=== PATIENT | male | born 1980 | race Caucasian/White ===

== ENCOUNTER 2017-12-24 19:02 | Inpatient (IN) | payer OTHER ==
--- NOTE | 2017-12-24 19:57 | EDPHY ---
H & P Stated Complaint: GROIN PAIN, SWOLLEN LYMPH NODE LEFT GROIN, TO ADMIT Time Seen by Provider: 12/24/17 19:46 HPI/ROS: CHIEF COMPLAINT: Scrotal cellulitis HISTORY OF PRESENT ILLNESS: The patient presents to the ED from a freestanding emergency department for scrotal cellulitis. He has a 37-year-old gentleman who several days ago developed a infected follicle on his left scrotum. This progressed and eventually led him to urgent care on Saturday. He was turned on Keflex at that point time. Patient reportedly developed ongoing fevers and developed inguinal adenopathy prompting a repeat visit to the freestanding emergency department today. The patient reportedly has had a fever size 103 degrees. The patient denies any vomiting, significant abdominal pain or respiratory symptoms. The patient has no prior history of genitourinary pathology or abdominal surgery. REVIEW OF SYSTEMS: A comprehensive 10 point review of systems is otherwise negative aside from elements mentioned in the history of present illness. Source: Patient Exam Limitations: No limitations - Personal History Current Tetanus/Diphtheria Vaccine: Yes - Medical/Surgical History Hx Asthma: No Hx Chronic Respiratory Disease: No Hx Diabetes: No Hx Cardiac Disease: No Hx Renal Disease: No Hx Cirrhosis: No Hx Alcoholism: No Hx HIV/AIDS: No Hx Splenectomy or Spleen Trauma: No Other PMH: GERD - Social History Smoking Status: Heavy smoker - Physical Exam Exam: General Appearance: Alert, no distress Eyes: Pupils equal and round no pallor or injection ENT, Mouth: Mucous membranes moist Respiratory: There are no retractions, lungs are clear to auscultation Cardiovascular: Regular rate and rhythm Gastrointestinal: Tenderness to palpation in the left inguinal area with a inguinal adenopathy present Genitourinary: Scrotal erythema noted with mild soft tissue swelling Neurological: 5/5 strength all 4 extremities Skin: Warm and dry, no rashes Musculoskeletal: Neck is supple nontender Extremities: symmetrical, full range of motion Constitutional: Initial Vital Signs Temperature (C) 37.1 C 12/24/17 19:36 Heart Rate 94 12/24/17 19:36 Respiratory Rate 20 12/24/17 19:36 Blood Pressure 147/111 H 12/24/17 19:36 O2 Sat (%) 96 12/24/17 19:36 O2 Delivery Mode Room Air Allergies/Adverse Reactions: No Known Allergies Allergy (Unverified 12/24/17 19:34) Home Medications: Medication Instructions Recorded Iv Abx 12/24/17 Medical Decision Making ED Course/Re-evaluation: I reviewed the patient's workup at the prior freestanding ED. [place] [address] with a slight left shift. His venous lactate was normal. Blood cultures x2 were obtained. The patient's metabolic panel demonstrated no evidence of renal failure or hyperglycemia. He was noted to have normal liver function test. The patient did have a CT scan abdomen pelvis which demonstrated pelvic lymphadenopathy and a scrotal cellulitis. There is no evidence of a drainable fluid collection. The patient has stable vital signs here in the emergency department and has no evidence of septic physiology. The patient has already been given a dose of vancomycin. I do feel the patient should be admitted to the hospital for further evaluation and management of his scrotal cellulitis. Consultation is made with Dr. Jose Leal from the hospitalist service who will admit the patient. Differential Diagnosis: Differential diagnosis considered includes scrotal cellulitis, abscess, Job 's gangrene Departure - Departure Disposition: [facility] Inpatient Acute Clinical Impression: Cellulitis of scrotum, Inguinal lymphadenopathy Condition: Good Referrals: NONE *PRIMARY CARE P,. [Primary Care Provider] - As per Instructions
[2017-12-24] MEDS ORDERED: OXYCODONE/APAP 5/325 TAB ONE (20:08)
[2017-12-24] MEDS ORDERED: OXYCODONE/APAP 5/325 TAB PO ONE (20:10)
[2017-12-24] MEDS ORDERED: ACETAMINOPHEN 325 MG TAB PO PRN (22:14)
[2017-12-24] MEDS ORDERED: ONDANSETRON DISINTEGRATING 4 MG TAB PO PRN (22:14)
[2017-12-24] MEDS ORDERED: ONDANSETRON 4 MG/2 ML VIAL IVP PRN (22:14)
[2017-12-24] MEDS: FAMOTIDINE 20 MG TAB PO SCH (22:42)
[2017-12-24] MEDS: NICOTINE 21 MG/24 HR PATCH TD SCH (22:42)
--- NOTE | 2017-12-24 22:53 | GHP ---
[f rep st] HISTORY AND PHYSICAL DATE OF ADMISSION: 12/24/2017 CHIEF COMPLAINT: Cellulitis. HISTORY OF PRESENT ILLNESS: 37-year-old male without any medical problems presents with cellulitis. He initially was seen at a free standing emergency department 3 days ago. He apparently had a pimpl e on his scrotum which he had popped. He then noticed some pain in his left groin area which he init ially thought was a hernia. He then proceeded to notice some redness on his scrotum. He presented t o the freestanding emergency department than and was prescribed Keflex. Two days later, he re-presen james there with fevers to 103, worsening pain, worsening redness. At that point, he was given vancomy myles there and transferred to our emergency department here for admission to the hospital. He tells rian epstein that the pain seems like it is worse since this morning. PAST MEDICAL/SURGICAL HISTORY: None. MEDICATIONS: None. ALLERGIES: Azithromycin. SOCIAL HISTORY: He is accompanied by his . He drinks alcohol on weekends. He smokes. 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 FAMILY HISTORY: Son is also allergic to azithromycin. REVIEW OF SYSTEMS: A 10-point review of systems is conducted and is negative except per HPI. PHYSICAL EXAM: VITAL SIGNS: Blood pressure 155/104, heart rate 87, respiration rate 18, saturating 93% on room air. Temperature is 37.1. GENERAL: The patient is a pleasant man who is resting comfor tably in no acute distress. HEENT: Normocephalic, atraumatic. CARDIOVASCULAR: Regular rate and rh ythm. There are no murmurs, rubs, or gallops. PULMONARY: Lungs clear to auscultation bilaterally. ABDOMEN: Soft, nontender, nondistended. SKIN: No rash. : Some prominent left inguinal lymphad enopathy. He has area of induration in the left scrotum. There is mild erythema surrounding the lef t scrotum. He is not really tender to palpation except for over the inguinal region. I do not appre ciate any fluctuance. Testicles bilaterally are not tender to palpation. NEUROLOGIC: Alert and namrata ented x3. He is moving all extremities. PSYCHIATRIC: Normal mood and affect. LABORATORY: Studies reviewed from earlier today at outside emergency department. These are notable for a normal comprehensive metabolic panel, white count of 9.8, platelets of 180, hemoglobin of 16.6, lactate was 0.7. He had blood cultures sent. DATA: 1. I discussed this with Dr. Aguilera in the emergency department. We will admit to med/surg. 2. Reviewed report of a CT scan which was done at outside ED. This showed thickening of the skin of the left hemiscrotum with associated stranding of the left inguinal fat and left inguinal and pelvic lymphadenopathy with likely scrotal cellulitis. IMPRESSION AND PLAN: 1. Scrotal cellulitis with lymphadenopathy: I do not appreciate on exam or on imaging any discernib le abscess or other drainable fluid collection. I have a low suspicion for Job's gangrene at th is point. I think it is reasonable to treat with antibiotics and monitor closely. He will receive v ancomycin here today. If there is any worsening of his condition, would involve Urology. I will carolyne ce an Infectious Disease consult as well. I have also sent GC and chlamydia probe from his urine. 2. Hypertension: This has apparently been a problem on previous visits to urgent care. I think it is reasonable to monitor now. It is not at a dangerous level. /[id number]/MODL
[2017-12-24] MEDS: VANCOMYCIN 1.5 GM in NS 250 ML IV SCH (23:54)
[2017-12-24] MEDS: OXYCODONE/APAP 5/325 TAB PO PRN (23:55)
[2017-12-25] MEDS: OXYCODONE/APAP 5/325 TAB PO PRN ×3 (06:06→16:50)
[2017-12-25 06:26] LABS: PLATELET COUNT 166 10^3/uL (150-400)
[2017-12-25] MEDS: FAMOTIDINE 20 MG TAB PO SCH ×2 (07:49→22:41)
[2017-12-25] MEDS: NICOTINE 21 MG/24 HR PATCH TD SCH (07:49)
--- NOTE | 2017-12-25 09:09 | GCON ---
[f rep st] CONSULTATION INFECTIOUS DISEASE CONSULTATION DATE OF CONSULTATION: 12/25/2017 PROVIDER REQUESTING CONSULTATION: Jose Leal. REASON FOR CONSULTATION: Left inguinal and scrotal cellulitis. HISTORY OF PRESENT ILLNESS: This is a 37-year-old male with a past medical history of gastroesophageal reflux disease, whose problems date back to December 21, when he developed a left inguinal pain. He subsequently was seen in the emergency room on the following day, 12/22, and a pimple was found in his groin and associated left scrotal cellulitis was diagnosed and patient was prescribed Keflex. The patient does admit to manipulating pimple. Patient started on Keflex, but despite this, he had increasing pain and swelling in the scrotal area and described inguinal lymphadenopathy. He also had a fever 3 times. He subsequently presented back to an urgent care 12/24, and was diagnosed with worsening scrotal cellulitis. Blood cultures were obtained. Labs were obtained including imaging, a CT scan, which showed thickening of the left hemiscrotum associated with left inguinal fat stranding and left inguinal pelvic lymphadenopathy. The patient was transferred to [facility] for admission. Initial white count was slightly elevated at 9.9. Patient reports inguinal lymphadenopathy, swelling, and pain about 50% better, but his left hemiscrotum swelling and pain is stable today. Patient received IV vancomycin. PAST MEDICAL HISTORY: Gastroesophageal reflux disease, and pneumonia in 2014. He has had no hospitalizations and no surgeries. ALLERGIES: Azithromycin, which causes severe nausea and vomiting. SOCIAL HISTORY: Patient smokes tobacco. Drinks alcohol on the weekends. Last travel was summer to [place]. Is , has 3 children. Works as an excavator. FAMILY HISTORY: Reviewed and noncontributory. REVIEW OF SYSTEMS: A complete 10-point review of systems was performed and is negative except as mentioned in the HPI. Patient has not seen a dentist or a primary care physician in many years. PHYSICAL EXAM: VITAL SIGNS: Blood pressure 154/100, pulse 82, respiratory rate 12, sat 93% on room air, temperature 37.1, which is also his T-max. GENERAL: This is an obese young male lying in bed in no acute distress. HEENT : Fair dentition, moist mucous membranes. No oral ulcerations or exudate. NECK: Supple. No lymphadenopathy. CARDIOVASCULAR: Regular rate. No murmurs. CHEST: Patient had bibasilar crackles that cleared with coughing. No wheezes. ABDOMEN: Obese, soft, nontender. Bowel sounds are present. : Patient had circumcised phallus with bilateral distended testicles with induration and mild johnathan erythema of the left hemiscrotum, which was firm to palpation, but no fluctuance. He also had some shotty inguinal lymphadenopathy. Erythema was not streaking up into his inguinal region nor his thigh. EXTREMITIES: Exam showed no lower extremity edema. He had multiple tattoos and piercings. LABORATORY: Initial white count 9.8, today 8.8; hematocrit 44; platelets of 166 , 66% neutrophils, 24% lymphocytes. Creatinine 0.8. Blood cultures were obtained at an outside hospital on 12/24. We will try to obtain update in the records. Syphilis was also sent at outside facility and gonorrhea and chlamydia are pending here. ASSESSMENT AND PLAN: This is a 37-year-old male with minimal past medical history, who developed left inguinal and scrotal pain and subsequently fever and found to have left inguinal cellulitis with radiographic imaging of associated reactive lymphadenopathy. With likely precipitant of a pimple, certainly top of the list is Staph aureus, and with concern for MRSA due to lack of response to Keflex. Therefore, antibiotic selection with vancomycin is a reasonable choice. Patient does have some clinical improvement. Would monitor 1 more night with planned discharge in the a.m. with discharge on an agent with MRSA activity such as doxycycline or Bactrim. We will have to take note of patient's underlying GI issues as both of these agents have significant GI side effects. Thank you for this consultation. We will reassess patient in the a.m. tomorrow. All questions were answered. Greater than 50 minutes spent on this patients care, greater than 50% of time spent counseling, educating, and coordinating care regarding the above mentioned plan. /[id number]/MODL MTDD
[2017-12-25] MEDS: VANCOMYCIN 1.5 GM in NS 250 ML IV SCH ×2 (11:45→22:58)
--- NOTE | 2017-12-25 11:52 | HOSPPROG ---
Hospitalist Progress Note Assessment/Plan: Patient is a 37-year-old male without any significant past medical history. He had a pimple on his scrotum area when she opened up. He started up some redness. He then went back to the ER was prescribed Keflex. 2 days later he had fevers of 103. Today is my 1st encounter with the patient. Chart reviewed. *left inguinal and scrotal pain w fever/left inguinal cellulitis -vanco -reviewed his care with Dr. Hamilton. If improved will discharge him either on Bactrim or doxycycline * morbid obesity with a BMI of 31 point 5 * hypertension -will discuss with patient treatment options * nicotine dependence * plan. Continue IV antibiotics tonight. Hopefully with improved he can be discharged tomorrow Subjective: Ran is feeling better overall. Objective: Vital Signs Temp Pulse Resp BP Pulse Ox 36.5 C 84 14 148/103 H 93 12/25/17 11:25 12/25/17 11:25 12/25/17 11:25 12/25/17 11:25 12/25/17 11:25 Laboratory Results 12/25/17 06:01 12/25/17 06:01 12/24/17 12/25/17 12/26/17 05:59 05:59 05:59 Intake Total 675 Balance 675 - Physical Exam Constitutional: no apparent distress, not in pain, obese Eyes: PERRL Ears, Nose, Mouth, Throat: hearing normal Cardiovascular: regular rate and rhythym Respiratory: no respiratory distress Gastrointestinal: normoactive bowel sounds Skin: warm, other (Left inguinal lymphadenopathy with some erythema around the left scrotum area) Musculoskeletal: full muscle strength Neurologic: AAOx3 Psychiatric: interacting appropriately ICD10 Worksheet Patient Problems: Problems Problem Status Onset Cellulitis of scrotum Acute Inguinal lymphadenopathy Acute
--- NOTE | 2017-12-25 16:27 | ASMTCMCOM ---
CM Note CM Note Notes: Pt here with scrotal cellulitis, on vancomycin. Will likely transition to po abx at dc. No needs identified, anticipate will dc home w/support of when medically stable. CM available for any changes. DC Plan: Independent Date Signed: 12/25/2017 04:27 PM Electronically Signed By:Desiree Newsome RN
[2017-12-25 19:05] LABS: HIV TYPE 1 AND 2 NEGATIVE (NEGATIVE)
[2017-12-26] MEDS: OXYCODONE/APAP 5/325 TAB PO PRN ×5 (02:31→22:36)
[2017-12-26] MEDS: FAMOTIDINE 20 MG TAB PO SCH ×2 (07:10→21:18)
[2017-12-26] MEDS: NICOTINE 21 MG/24 HR PATCH TD SCH (07:11)
--- NOTE | 2017-12-26 08:30 | PCMIDPN ---
Assessment/Plan: # L scrotal cellulitis and reactive inguinal LAD, very little improvement and now seems more fluctuant. Associated with 'pimple' therefore SA high on the list --Obtain US and possible aspiration. If abscess evolving may need urology consult --continue IV vancomycin, check tough today --concern for SA and lack of response to Keflex, therefore coverage w Vancomycin IV meds Vancomycin 1.5 gm IV q12h #1 Micro HIV negative blood cx at OSH: awaiting results Gonorrhea neg chlamydia pending Subjective: patient report L scrotum still fairly painful, particularly w standing A little itching w infusion of IV vancomycin, no diarrhea Objective: Vital Signs Temp Pulse Resp BP Pulse Ox 36.9 C 100 18 164/106 H 92 12/26/17 07:46 12/26/17 07:46 12/26/17 07:46 12/26/17 08:12 12/26/17 07:46 Laboratory Results 12/25/17 06:01 12/25/17 06:01 12/25/17 12/26/17 12/27/17 05:59 05:59 05:59 Intake Total 675 1350 Balance 675 1350 - Physical Exam General Appearance: alert, no apparent distress Respiratory: No accessory muscle use Male Genitalia: erythema (L scrotum, very little improvement, now feels more fluctuant - egg sized area of erythema, enduration and possible fluctuance L scrotum), inguinal tenderness (L) Skin: other (multiple tattos), No rash Neuro/Psych: alert, normal mood/affect, oriented x 3 - Time Spent With Patient Time Spent with Patient: greater than 25 minutes (care coordinated w Candace Valdez NP) Time Spent with Patient: Greater than 25 minutes spent on this patients care, greater than 50% of time spent counseling, educating, and coordinating care regarding the above mentioned plan. ICD10 Worksheet Patient Problems: Problems Problem Status Onset Cellulitis of scrotum Acute Inguinal lymphadenopathy Acute
--- NOTE | 2017-12-26 10:28 | HOSPPROG ---
Hospitalist Progress Note Assessment/Plan: Patient is a 37-year-old male without any significant past medical history. He had a pimple on his scrotum area and he opened it up. He started to have some redness. He then went back to the ER was prescribed Keflex. 2 days later he had fevers of 103. *left inguinal and scrotal pain w fever/left inguinal cellulitis -vanco (dose increased) -reviewed his care with Dr. Hamilton. Will get an ultrasound today * morbid obesity with a BMI of 31 * hypertension -initiate amlodipine (low dose) * nicotine dependence -cessation recommended patch * plan. Continue IV antibiotics, treat htn; he will another midnight stay for IV abx and to monitor for improvement, will change to IP status. Subjective: Ran said his left groin area had increase pain today. Objective: Vital Signs Temp Pulse Resp BP Pulse Ox 36.9 C 100 18 164/106 H 92 12/26/17 07:46 12/26/17 07:46 12/26/17 07:46 12/26/17 08:12 12/26/17 07:46 Laboratory Results 12/25/17 06:01 12/25/17 06:01 12/25/17 12/26/17 12/27/17 05:59 05:59 05:59 Intake Total 675 1350 Balance 675 1350 - Physical Exam Constitutional: obese Eyes: PERRL Ears, Nose, Mouth, Throat: hearing normal Cardiovascular: regular rate and rhythym Respiratory: no respiratory distress Gastrointestinal: normoactive bowel sounds Skin: warm Musculoskeletal: full muscle strength Neurologic: AAOx3 Psychiatric: interacting appropriately ICD10 Worksheet Patient Problems: Problems Problem Status Onset Cellulitis of scrotum Acute Inguinal lymphadenopathy Acute
[2017-12-26] MEDS: VANCOMYCIN 1.5 GM in NS 250 ML IV SCH (12:50)
[2017-12-26] MEDS ORDERED: VANCOMYCIN 1.25 GM in D5W 250 ML IV SCH (13:00)
[2017-12-26] MEDS: VANCOMYCIN 1.25 GM in NS 250 ML IV SCH ×2 (13:44→21:18)
--- NOTE | 2017-12-26 16:39 | PDMN ---
Medical Necessity Medical necessity: Patient meets inpatient criteria per EDUCATION MANAGERS note and MCG M-70 Cellulitis (ongoing scrotal cellulitis, failed O/P treatment w/ po Keflex, presented with fever to 103, worsening pain, worsening redness; IV Vanco dose increased after inadequate improvement; U/S shows no drainable abscess; LOS > 2 midnights for ongoing IV vancomycin, ID considering additional coverage for GNR/ continued monitoring needed.)
[2017-12-27] MEDS: VANCOMYCIN 1.25 GM in NS 250 ML IV SCH ×2 (05:33→13:41)
[2017-12-27 07:42] VITALS: RESP 16
[2017-12-27] MEDS: NICOTINE 21 MG/24 HR PATCH TD SCH (08:39)
[2017-12-27] MEDS: FAMOTIDINE 20 MG TAB PO SCH (08:39)
--- NOTE | 2017-12-27 10:08 | PCMIDPN ---
Assessment/Plan: 1. Left-sided scrotal cellulitis with inguinal lymphadenitis: Much better today. Ultrasound without evidence of abscess. The patient will receive his 1:00 p.m. dose of vancomycin, then be discharged on doxycycline 100 mg p.o. twice daily for another 9 days. Warned him of pill esophagitis, photosensitivity, and the need to avoid polyvalent cation binders/dairy products. Patient expressed understanding. He will see Marina Doyle NP January 02 at 9:00 a.m.. Subjective: Much better. Objective: Vancomycin 1.25 g IV q.8 hours day 2 Afebrile Vital Signs Temp Pulse Resp BP Pulse Ox 36.6 C 84 16 155/98 H 93 12/27/17 07:40 12/27/17 09:49 12/27/17 07:40 12/27/17 09:49 12/27/17 07:40 No microbiology - Physical Exam General Appearance: alert, no apparent distress Male Genitalia: other (Tender inguinal adenopathy on the left, no overlying skin changes. Scrotal sac on the left with small papule, not fluctuant. Brick red erythema with puckering of the scrotal sac consistent with improvement. Minimal tenderness.) ICD10 Worksheet Patient Problems: Problems Problem Status Onset Cellulitis of scrotum Acute Inguinal lymphadenopathy Acute
[2017-12-27 12:29] VITALS: TEMP 98.4
--- NOTE | 2017-12-27 13:30 | GDS ---
[f rep st] DISCHARGE SUMMARY DISCHARGE DIAGNOSES: 1. Left-sided scrotal cellulitis, with inguinal lymphadenitis. 2. Hypertension. 3. Morbid obesity. 4. Nicotine dependence. CONSULTANTS: Dr. Mihaela Jacobs, Infectious Disease, HOSPITAL COURSE AND STAY BY PROBLEM: 1. Scrotal cellulitis, with inguinal lymphadenitis: The patient was admitted to the hospital, where he was treated with IV vancomycin. No culture data was obtained. The patient's infection improved while on vancomycin. On the day of discharge, I discussed the case with Dr. Mihaela Jacobs, who has r ecommended discharge to complete 9 more days of oral doxycycline 100 mg p.o. b.i.d. This was explain ed to the patient, who verbalized understanding to these instructions. 2. Hypertension: While here in the hospital, the patient's blood pressure has been consistently franklin vated, as high as 147/111 on initial presentation. The patient does tell me that he has a strong fam andrew history of hypertension. He was started on amlodipine 2.5 mg daily, which has helped. On the mo rning of discharge, his blood pressure was 155/98. He will be discharged on 5 mg of amlodipine and w as urged to establish care with a primary care provider as soon as possible. PHYSICAL EXAMINATION: VITAL SIGNS: On day of discharge, blood pressure 155/98, pulse 84, respirator y rate 16, O2 sat 93% on room air. Temperature afebrile. GENERAL: No acute distress. : Scrotum was without obvious abscess. PERTINENT LABORATORIES AND STUDIES: On this hospital stay, HIV was done and was negative. Gonorrhea and chlamydia were negative. Scrotal ultrasound was done on 12/26/2017. Refer to report. DISCHARGE MEDICATIONS: Please refer to the discharge medication reconciliation in [facility] for full details. Below is a preliminary list of medications on discharge: Doxycycline 100 mg p.o. b.i.d. to complete 10 days of treatment and amlodipine 5 mg p.o. daily. DISCHARGE INSTRUCTIONS: The patient will be discharged from the hospital, where once again he was ur ged to establish care with a primary care provider to address his hypertension. He should also follo w up with Marina Doyle at the [facility] on January 02 at 9:00 a.m. /[id number]/MODL
[2017-12-27 15:31] VITALS: BP 163/101; PULSE 75; O2SAT 94
== END 2017-12-27 15:57 | disposition home or self-care (01) | DRG 728 ==
LOC: F3E 21:06 → OBSVTOIN 12-26 16:00
PROVIDERS: ADMIT Student in an Organized Health Care Education/Training Program; ATTEND Family Medicine
DX: N49.2 Inflammatory disorders of scrotum (principal); I89.1 Lymphangitis; I10 Essential (primary) hypertension; E66.01 Morbid (severe) obesity due to excess calories; Z68.31 Body mass index [BMI] 31.0-31.9, adult; F17.210 Nicotine dependence, cigarettes, uncomplicated; K21.9 Gastro-esophageal reflux disease without esophagitis; Z88.1 Allergy status to other antibiotic agents
CPT/HCPCS: G0378; J3370

== ENCOUNTER 2018-02-10 12:32 | Emergency (ER) | payer OTHER ==
--- NOTE | 2018-02-10 13:18 | EDPHY ---
H & P Stated Complaint: L INGUINAL AND L TESTICULAR SCROTAL CELLULITIS/SWELLING Time Seen by Provider: 02/10/18 13:17 HPI/ROS: CHIEF COMPLAINT: Recurrent inguinal swelling, erythema left groin HISTORY OF PRESENT ILLNESS: The patient presents the ED with complaints of recurrent inguinal swelling erythema to his left groin and scrotum. The patient was hospitalized approximately 1 month ago with similar symptoms. At that point time he had a cellulitis lymphangitis. There is no evidence of an abscess. He had a negative gonorrhea and Chlamydia test at that time. The patient was discharged home on a 10 day course of doxycycline with improvement of his symptoms. The patient tells me that his symptoms returned approximately 1 week ago. He denies any fever, flank pain but does report moderate pain in his perineal area with associated soft tissue swelling. REVIEW OF SYSTEMS: A comprehensive 10 point review of systems is otherwise negative aside from elements mentioned in the history of present illness. Source: Patient Exam Limitations: No limitations - Personal History Current Tetanus/Diphtheria Vaccine: Unsure - Medical/Surgical History Hx Asthma: No Hx Chronic Respiratory Disease: No Hx Diabetes: No Hx Cardiac Disease: No Hx Renal Disease: No Hx Cirrhosis: No Hx Alcoholism: No Hx HIV/AIDS: No Hx Splenectomy or Spleen Trauma: No Other PMH: GERD/HTN - Social History Smoking Status: Heavy smoker - Physical Exam Exam: General Appearance: Alert, no distress Eyes: Pupils equal and round no pallor or injection ENT, Mouth: Mucous membranes moist Respiratory: There are no retractions, lungs are clear to auscultation Cardiovascular: Regular rate and rhythm Gastrointestinal: Abdomen is soft and nontender, no masses, bowel sounds normal Genitourinary: Left scrotal erythema, soft tissue swelling, left inguinal adenopathy, no crepitus Neurological: 5/5 strength all 4 extremities Skin: Warm and dry, no rashes Musculoskeletal: Neck is supple nontender Extremities: symmetrical, full range of motion Constitutional: Initial Vital Signs Temperature (C) 37 C 02/10/18 12:39 Heart Rate 77 02/10/18 12:39 Respiratory Rate 18 02/10/18 12:39 Blood Pressure 164/118 H 02/10/18 12:39 O2 Sat (%) 95 02/10/18 12:39 O2 Delivery Mode Room Air Allergies/Adverse Reactions: azithromycin Allergy (Verified 02/10/18 12:38) Nausea/ Vomiting Home Medications: Medication Instructions Recorded Ibuprofen [Motrin (*)] 600 mg PO BID PRN 12/24/17 Doxycycline Hyclate 100 mg PO BID #20 tablet 12/27/17 amLODIPine BESYLATE [Norvasc 5 mg 5 mg PO DAILY 30 Days tab 12/27/17 (*)] Medical Decision Making - Diagnostics Imaging Results: Imaging Impressions Extremity Ultrasound 02/10/18 13:24 Impression: 1. Small residual complex collection lateral to the spermatic cord left inguinal region with a small amount of associated fluid. This probably represents residual infectious nidus from previous scrotal cellulitis. Findings discussed with Dylon Aguilera M.D. at 14:20 hour, 02/10/2018. ED Course/Re-evaluation: The patient presents to the ED with recurrent cellulitis and lymphangitis involving the left scrotum. The patient has a very small in drainable fluid collection noted on ultrasound. He is nontoxic and well-appearing without clinical evidence of a foreign use gangrene. The patient will be started on doxycycline which he had used in the past with improvement of his symptoms. The patient will be advised to follow up with his Infectious Disease doctor as an outpatient. Blood cultures x2 were obtained in the emergency department. I did reviewed the results of the patient's prior workup and hospitalization. Differential Diagnosis: Differential diagnosis considered includes scrotal cellulitis, scrotal abscess, gangrene - Data Points Laboratory Results: Laboratory Results 02/10/18 13:35 02/10/18 13:35 02/10/18 02/10/18 13:35 13:35 WBC 7.04 10^3/uL 10^3/uL (3.80-9.50) RBC 5.30 10^6/uL 10^6/uL (4.40-6.38) Hgb 15.9 g/dL g/dL (13.7-17.5) Hct 45.0 % % (40.0-51.0) MCV 84.9 fL fL (81.5-99.8) MCH 30.0 pg pg (27.9-34.1) MCHC 35.3 g/dL g/dL (32.4-36.7) RDW 12.5 % % (11.5-15.2) Plt Count 195 10^3/uL 10^3/uL (150-400) MPV 10.3 fL fL (8.7-11.7) Neut % (Auto) 66.3 % % (39.3-74.2) Lymph % (Auto) 26.0 % % (15.0-45.0) [place] % (Auto) 6.4 % % (4.5-13.0) Eos % (Auto) 0.3 % L % (0.6-7.6) Baso % (Auto) 0.6 % % (0.3-1.7) Nucleat RBC Rel Count 0.0 % % (0.0-0.2) Absolute Neuts (auto) 4.67 10^3/uL 10^3/uL (1.70-6.50) Absolute Lymphs (auto) 1.83 10^3/uL 10^3/uL (1.00-3.00) Absolute Monos (auto) 0.45 10^3/uL 10^3/uL (0.30-0.80) Absolute Eos (auto) 0.02 10^3/uL L 10^3/uL (0.03-0.40) Absolute Basos (auto) 0.04 10^3/uL 10^3/uL (0.02-0.10) Absolute Nucleated RBC 0.00 10^3/uL 10^3/uL (0-0.01) Immature Gran % 0.4 % % (0.0-1.1) Immature Gran # 0.03 10^3/uL 10^3/uL (0.00-0.10) Sodium 142 mEq/L mEq/L (135-145) Potassium 4.0 mEq/L mEq/L (3.5-5.2) Chloride 105 mEq/L mEq/L (97-110) Carbon Dioxide 23 mEq/l mEq/l (22-31) Anion Gap 14 mEq/L mEq/L (8-16) BUN 15 mg/dL mg/dL (7-23) Creatinine 0.8 mg/dL mg/dL (0.7-1.3) Estimated GFR > 60 Glucose 89 mg/dL mg/dL (70-100) Calcium 9.0 mg/dL mg/dL (8.5-10.4) Departure - Departure Disposition: Home, Routine, Self-Care Clinical Impression: Cellulitis of scrotum, Inguinal lymphadenopathy Condition: Good Instructions: Cellulitis (ED) Additional Instructions: 1. Please take antibiotics as prescribed for next 2 weeks. 2. Please schedule a follow-up appointment with your Infectious Disease doctor. 3. Please return to the ED for markedly worsening pain, swelling or other concerns. Referrals: Filiberto Yarbrough DO [Primary Care Provider] - As per Instructions
[2018-02-10 13:49] LABS: PLATELET COUNT 195 10^3/uL (150-400)
[2018-02-10 14:57] VITALS: BP 161/97
== END 2018-02-10 14:57 | disposition home or self-care (01) ==
DX: R59.1 Generalized enlarged lymph nodes (principal); N49.2 Inflammatory disorders of scrotum; I10 Essential (primary) hypertension; F17.200 Nicotine dependence, unspecified, uncomplicated

== ENCOUNTER → 2018-12-05 | Outpatient (CLI) | payer OTHER | LOC: CIMAGING 12:48 | PROVIDERS: ATTEND Family Medicine | DX: N49.2 Inflammatory disorders of scrotum (principal); I89.1 Lymphangitis | CPT/HCPCS: 76870-PO ==